=== PATIENT | female | born 1985 | race Caucasian/White ===

== ENCOUNTER → 2021-03-14 | Outpatient (CLI) | payer MEDICAID | LOC: COL.RAD 09:37 | DX: M25.511 Pain in right shoulder (principal) ==

== ENCOUNTER 2021-04-08 14:40 | Emergency (ER) | payer MEDICAID | END 2021-04-08 14:48 | disposition left against medical advice (07) | LOC: COL.ER 14:40 | DX: R69 Illness, unspecified (principal) ==

== ENCOUNTER 2024-07-13 20:27 | Emergency (ER) | payer MEDICARE ==
[~2024-07-13] VITALS: Ht 170.2 cm; Wt 90.9 kg
[2024-07-13 20:44] VITALS: BP 125/87; TEMP 98.3
[2024-07-13] MEDS ORDERED: Amoxicillin/Clavulanate K+ 875/125 MG TAB PO ONE (21:15)
[2024-07-13] MEDS ORDERED: Tdap Vaccine 0.5 ML SYRINGE IM ONE (21:15)
[2024-07-13] MEDS ORDERED: AMOXICILLIN 8751 TAB PO (21:44)
[2024-07-13] MEDS ORDERED: Home HYDROcodone/Acetaminophen 5/325 MG #4 TABS/PACK PO ONE (21:45)
[2024-07-13 22:05] VITALS: PULSE 88
== END 2024-07-13 22:05 | disposition home or self-care (01) ==
LOC: COL.ER 20:27
DX: S61.452A Open bite of left hand, initial encounter (principal); S61.012A Laceration without foreign body of left thumb without damage to nail, initial encounter; Z23 Encounter for immunization; W54.0XXA Bitten by dog, initial encounter